=== PATIENT | male | born 1945 | race Caucasian/White ===

== ENCOUNTER 2016-08-30 09:50 | Emergency (ER) | payer MEDICARE, OTHER ==
[~2016-08-30] VITALS: Ht 167.6 cm; Wt 76.5 kg
[~2016-08-30 09:50] MED LIST: ALLO100T PO; ASPI81TA11 PO; CEPH-460 PO; CHOLMIS PO; LISI-515 PO; METF850T PO; PERC5TAB12 PO
[2016-08-30 09:53] VITALS: BP 171/100; PULSE 99; RESP 16; TEMP 97.6; O2SAT 98
[2016-08-30] MEDS ORDERED: SODIUM CHLOR 0.9% 1000 ML INJ 1,000 ML IV SCH (10:08)
[2016-08-30] MEDS ORDERED: MULT-65 PO (10:08)
[2016-08-30] MEDS ORDERED: INDO25CA PO (10:08)
--- NOTE | 2016-08-30 10:12 | PD ---
HPI Chief Complaint: Abdominal Pain Time Seen by Provider: 09:59 Travel History International Travel<30 days: No Contact w/Intl Traveler<30days: No Traveled to known affect area: No History of Present Illness HPI This 71-year-old man who presents to the emergency department claiming of left lower quadrant abdominal pain is been ongoing for the past week or so. He's had a little bit of stool changes. Initially had some hard stools. He started taking some chewable fiber. It a bowel movement this morning that was a little bit loose. He's had nausea but no vomiting. No fevers or chills. He states he 's had this pain intermittently in the past but was mild and infrequent. Over the past week it been constant and unrelenting. He otherwise has been feeling generally well and healthy. Only abdominal surgical history is an appendectomy. He had a colonoscopy about 5-7 years ago that was normal. Never had diverticulitis before. Never a kidney stones before. Denies any testicular pain or swelling. No other complaints. History Past Medical History Narrative Medical Hypertension Diabetes Hyperlipidemia Gout Social History Alcohol Use: Yes (OCCASIONAL) Tobacco Use: No (QUIT 1992) Allergies-Medications (Allergen,Severity, Reaction): Coded Allergies: No Known Allergies (Verified , 08/30/16) Reported Meds & Prescriptions Reported Meds & Active Scripts Active Reported Percocet (Oxycodone-Acetaminophen) 5-325 mg Tab 1 Tab PO BID PRN Multi-Vitamin Daily (Multiple Vitamin) 1 Tab Tab 1 Tab PO DAILY Indomethacin 25 Mg Cap 25 Mg PO TID Take with food, milk, or antacids to decrease stomach adverse effects. Aspirin EC (Aspirin) 81 Mg Tabdr 81 Mg PO DAILY Allopurinol 100 Mg Tab 100 Mg PO DAILY Metformin (Metformin HCl) 850 Mg Tab 850 Mg PO BIDPC With meals Lisinopril 20 Mg Tab 20 Mg PO DAILY Review of Systems Except as stated in HPI: all other systems reviewed are Neg Physical Exam Narrative GENERAL: Well-appearing 8-year-old man, no acute distress. SKIN: Focused skin assessment warm/dry. CARDIOVASCULAR: Regular rate and rhythm. No murmur appreciated. RESPIRATORY: No accessory muscle use. Clear to auscultation. Breath sounds equal bilaterally. GASTROINTESTINAL: Abdomen is flat and soft. Minimal left four-quadrant tenderness to palpation. No rebound or guarding. MUSCULOSKELETAL: No obvious deformities. No edema. NEUROLOGICAL: Awake and alert. No obvious cranial nerve deficits. Motor grossly within normal limits. Normal speech. PSYCHIATRIC: Appropriate mood and affect; insight and judgment normal. Data Data Last Documented VS Vital Signs Date Time Temp Pulse Resp B/P Pulse Ox O2 Delivery O2 Flow Rate FiO2 08/30/16 10:25 89 16 167/82 95 Room Air 08/30/16 09:53 97.6 Orders Complete Blood Count With Diff (08/30/16 10:08) Comprehensive Metabolic Panel (08/30/16 10:08) Lipase (08/30/16 10:08) Urinalysis - C+S If Indicated (08/30/16 10:08) Ct Abd/Pel W Iv Contrast(Rout) (08/30/16 10:08) Iv Access Insert/Monitor (08/30/16 10:08) Sodium Chlor 0.9% 1000 Ml Inj (Ns 1000 M (08/30/16 10:08) Sodium Chloride 0.9% Flush (Ns Flush) (08/30/16 10:15) Iohexol 350 Inj (Omnipaque 350 Inj) (08/30/16 11:47) Labs Laboratory Tests Test 08/30/16 08/30/16 10:15 10:25 White Blood Count 9.4 TH/MM3 Red Blood Count 4.64 MIL/MM3 Hemoglobin 14.1 GM/DL Hematocrit 42.7 % Mean Corpuscular Volume 91.9 FL Mean Corpuscular Hemoglobin 30.3 PG Mean Corpuscular Hemoglobin 32.9 % Concent Red Cell Distribution Width 14.4 % Platelet Count 273 TH/MM3 Mean Platelet Volume 7.2 FL Neutrophils (%) (Auto) 80.3 % Lymphocytes (%) (Auto) 11.7 % Monocytes (%) (Auto) 5.1 % Eosinophils (%) (Auto) 2.7 % Basophils (%) (Auto) 0.2 % Neutrophils # (Auto) 7.5 TH/MM3 Lymphocytes # (Auto) 1.1 TH/MM3 Monocytes # (Auto) 0.5 TH/MM3 Eosinophils # (Auto) 0.3 TH/MM3 Basophils # (Auto) 0.0 TH/MM3 CBC Comment DIFF FINAL Differential Comment Sodium Level 140 MEQ/L Potassium Level 5.1 MEQ/L Chloride Level 105 MEQ/L Carbon Dioxide Level 24.6 MEQ/L Anion Gap 10 MEQ/L Blood Urea Nitrogen 21 MG/DL Creatinine 1.30 MG/DL Estimat Glomerular Filtration 55 ML/MIN Rate Random Glucose 247 MG/DL Calcium Level 9.7 MG/DL Total Bilirubin 0.5 MG/DL Aspartate Amino Transf 19 U/L (AST/SGOT) Alanine Aminotransferase 38 U/L (ALT/SGPT) Alkaline Phosphatase 83 U/L Total Protein 7.4 GM/DL Albumin 3.9 GM/DL Lipase 254 U/L Urine Collection Type CLEAN CATCH Urine Color YELLOW Urine Turbidity CLEAR Urine pH 5.0 Urine Specific [place] 1.025 Urine Protein TRACE mg/dL Urine Glucose (UA) 250 mg/dL Urine Ketones TRACE mg/dL Urine Occult Blood NEG Urine Nitrite NEG Urine Bilirubin NEG Urine Leukocyte Esterase NEG Urine RBC 0-3 /hpf Urine Squamous Epithelial 0-5 /hpf Cells Microscopic Urinalysis Comment CULT NOT INDICATED Urine Collection Time 10:25 MDM Medical Decision Making Medical Screen Exam Complete: Yes Emergency Medical Condition: Yes Interpretation(s) LABS: CBC is unremarkable. CMP, mildly elevated BUN, elevated glucose. UA some glucose, otherwise negative CT abdomen and pelvis: Cholelithiasis. Colonic diverticulosis without evidence of active inflammation. Focal scarring on the superior pole of the left kidney. No acute process. Differential Diagnosis Diverticulitis, constipation, renal lithiasis, obstruction, other Narrative Course Medical decision making INITIAL: This a 71-year-old man who presents to the emergency department complaining of low four-quadrant abdominal pain for the past week. He has some stool changes as well. Suspect diverticulitis. We'll check labs, urine, CT, reassess. FINAL: 71-year-old male this left-sided abdominal pain, mild tenderness. Likely constipation or very mild diverticulitis. CT scan does not show any inflammatory changes. We'll plan treatment with antibiotics, Judith-Colace, and outpatient follow-up. Diagnosis Primary Impression: Left lateral abdominal pain Additional Instructions: Take Cipro and Flagyl as prescribed. Take Judith-Colace as prescribed. Follow-up with your primary doctor in 2-4 days every not feeling completely well. Return to the emergency department for any new or worsening symptoms. Med/Other Pt SpecificInfo: Prescription(s) given Scripts Sennosides-Docusate Sodium (Judith-Colace)8.6-50 Mg Tab2 Tab PO BID PRN ( Constipation) #30 TAB Ref 0 Prov:Hany Rogers MD 08/30/16 Metronidazole (Flagyl)500 Mg [id number] Mg PO TID 10 Days Ref 0 Prov:Hany Rogers MD 08/30/16 Ciprofloxacin (Cipro)500 Mg [id number] Mg PO BID 10 Days Prov:Hany Rogers MD 08/30/16 Disposition: 01 DISCHARGE HOME Condition: Stable Hany Rogers MD Aug 30, 2016 10:12
[2016-08-30] MEDS ORDERED: SODIUM CHLORIDE 0.9% FLUSH 10 ML FLUSH IV FLUSH PRN (10:15)
[2016-08-30 10:21] LABS: AUTOMATED NEUTROPHIL # 7.5 TH/MM3 (1.8-7.7); BASOPHIL % 0.2 % (0.0-2.0); EOSINOPHIL # 0.3 TH/MM3 (0-0.4); EOSINOPHIL % 2.7 % (0.0-4.0); HEMATOCRIT 42.7 % (39.0-51.0); HEMO FLAGS DIFF FINAL; LYMPH % 11.7 % (9.0-44.0); LYMPHOCYTE # 1.1 TH/MM3 (1.0-4.8); MEAN CELL VOLUME 91.9 FL (80.0-100.0); MEAN CORPUSCULAR HEMOGLOBIN 30.3 PG (27.0-34.0); MEAN CORPUSCULAR HGB CONC 32.9 % (32.0-36.0); MONO % 5.1 % (0.0-8.0); NEUT % 80.3 % (16.0-70.0); PLATELET COUNT 273 TH/MM3 (150-450); RED BLOOD COUNT 4.64 MIL/MM3 (4.50-5.90); RED CELL DISTRIBUTION WIDTH 14.4 % (11.6-17.2); WHITE BLOOD COUNT 9.4 TH/MM3 (4.0-11.0)
[2016-08-30] MEDS ORDERED: PERC5TAB12 PO (10:21)
[2016-08-30 10:25] VITALS: BP 167/82; PULSE 89; RESP 16; O2SAT 95
[2016-08-30 10:30] LABS: BLOOD, URINE NEG (NEG); GLUCOSE,URINE 250 mg/dL (NEG); KETONE, URINE TRACE mg/dL (NEG); NITRITE,URINE NEG (NEG)
[2016-08-30 10:32] LABS: METHOD OF COLLECTION CLEAN CATCH; URINE COLOR YELLOW (YELLW/STRAW)
[2016-08-30 10:34] LABS: COMMENT (UR) CULT NOT INDICATED; CULTURE IF INDICATED CULT NOT INDICATED; RBC, URINE 0-3 /hpf (0-3); SQUAMOUS EPITHELIAL CELL URINE 0-5 /hpf (0-5)
[2016-08-30 11:01] LABS: ALKALINE PHOSPHATASE 83 U/L (45-117); ALT (GPT) 38 U/L (12-78); AST (GOT) 19 U/L (15-37); BLOOD UREA NITROGEN 21 MG/DL (7-18); GLOMERULAR FILTRATION RATE 55 ML/MIN (>89); TOTAL BILIRUBIN ADULT 0.5 MG/DL (0.2-1.0)
[2016-08-30 11:02] LABS: ANION GAP 10 MEQ/L (5-15); BICARBONATE 24.6 MEQ/L (21.0-32.0); CHLORIDE 105 MEQ/L (98-107); POTASSIUM 5.1 MEQ/L (3.5-5.1); SODIUM (NA) 140 MEQ/L (136-145)
[2016-08-30] MEDS ORDERED: IOHEXOL 350 MG/ML 10 ML VIAL (for RAD DIAG) IV ONE (11:47)
--- NOTE | 2016-08-30 11:53 | RADHPO ---
EXAM DATE/TIME: 08/30/2016 11:07 [facility] COMPARISON: No previous studies available for comparison. INDICATIONS : Left lower quadrant pain. IV CONTRAST: 100 cc Omnipaque 350 (iohexol) IV ORAL CONTRAST: No oral contrast ingested. RADIATION DOSE: 13.34 CTDIvol (mGy) MEDICAL HISTORY : Diabetes mellitus type 2. Hypertension. SURGICAL HISTORY : Appendectomy. ENCOUNTER: Initial ACUITY: 1 week PAIN SCALE: 4/10 LOCATION: Left lower quadrant TECHNIQUE: Volumetric scanning of the abdomen and pelvis was performed. Using automated exposure control and ad justment of the mA and/or kV according to patient size, radiation dose was kept as low as reasonably achievable to obtain optimal diagnostic quality images. FINDINGS: LOWER LUNGS: The visualized lower lungs are clear. LIVER: Liver appears diffusely hypodense. There is no dilation of the biliary tree. Small calcified gallsto cherelle are noted. SPLEEN: Normal size without lesion. PANCREAS: Within normal limits. KIDNEYS: Focal hypodensity with cortical thinning is seen along the superior pole of the left kidney.. There is no mass, stone or hydronephrosis. ADRENAL GLANDS: Within normal limits. VASCULAR: There is no aortic aneurysm. BOWEL/MESENTERY: Scattered diverticula are identified along the descending and sigmoid colon. The stomach, small bowel , and colon demonstrate no acute abnormality. There is no free intraperitoneal air or fluid. ABDOMINAL WALL: Within normal limits. RETROPERITONEUM: There is no lymphadenopathy. BLADDER: No wall thickening or mass. REPRODUCTIVE: Prostate appears mildly enlarged. INGUINAL: There is no lymphadenopathy or hernia. MUSCULOSKELETAL: No acute process. CONCLUSION: Cholelithiasis. Colonic diverticulosis without evidence of active inflammation. Focal scarring along the superior pole the left kidney. No acute process. Vin Stanton MD on August 30, 2016 at 11:44 Board Certified Radiologist. This report was verified electronically.
[2016-08-30] MEDS ORDERED: CIPR-9 PO (12:04)
[2016-08-30] MEDS ORDERED: METR-1 PO (12:05)
[2016-08-30] MEDS ORDERED: PERI8.6T PO (12:05)
== END 2016-08-30 12:28 | disposition home or self-care (01) ==
LOC: PHED 09:50
DX: R10.32 Left lower quadrant pain (principal); I10 Essential (primary) hypertension; E11.9 Type 2 diabetes mellitus without complications; E78.5 Hyperlipidemia, unspecified
CPT/HCPCS: 74177; 80053; 81001; 83690; 85025; 96360; 96361; 99284; J7030; Q9967